=== PATIENT | female | born 1930 | race Caucasian/White ===

== ENCOUNTER 2016-11-16 13:02 | Outpatient (CLI) | payer MEDICARE, OTHER ==
[2015-04-14 19:39] VITALS: BP 121/50
== END 2016-11-16 13:03 ==
LOC: POD 13:02
PROVIDERS: ATTEND Podiatrist
DX: L84 Corns and callosities (principal); B35.1 Tinea unguium; M79.674 Pain in right toe(s); M79.675 Pain in left toe(s)
CPT/HCPCS: G0463

== ENCOUNTER 2017-01-02 13:33 | Outpatient (CLI) | payer MEDICARE ==
[2015-04-14 19:39] VITALS: BP 121/50
== END 2017-01-02 13:34 ==
LOC: LABRHC 13:33
PROVIDERS: ATTEND Family Medicine
DX: R30.0 Dysuria (principal)
CPT/HCPCS: 87086; 87186

== ENCOUNTER 2017-01-11 18:07 | Emergency (ER) | payer MEDICARE, OTHER ==
[2017-01-11 18:27] LABS: BASOPHILS % 0.3 (0.0-1.5); EOSINOPHILS % 1.3 % (0.0-6.8); MEAN CORPUSCULAR HEMOGLOBIN 30.2 pg (28.0-34.0); MEAN CORPUSCULAR VOLUME 87.5 fl (80.0-100.0); NEUTROPHILS # 8.8 # k/uL (1.4-7.7)
[2017-01-11 18:44] LABS: eGFR (African) > 60; eGFR (Non-African) > 60
[2017-01-11] MEDS: 0.9 % SODIUM CHLORIDE 1,000 ML IV ONE ×2 (19:07→21:11)
[2017-01-11] MEDS ORDERED: ONDANSETRON HCL/PF 4 MG/ 2ML VIAL ONE (20:20)
[2017-01-11] MEDS: ONDANSETRON HCL/PF 4 MG/ 2ML VIAL IVP ONE (20:27)
[2017-01-11] MEDS ORDERED: 0.9 % SODIUM CHLORIDE 500 ML IV ONE (21:06)
[2017-01-11] MEDS ORDERED: LEVOFLOXACIN 500MG/D5W 100ML 100 ML IV ONE (21:26)
[2017-01-11] MEDS: LEVOFLOXACIN 500MG/D5W 100ML 500 MG in PREMIX BAG 1 BAG IV SCH (21:33)
[2017-01-11 22:10] VITALS: BP 111/61
--- NOTE | 2017-01-12 00:21 | ED Physician Documentation ---
General Adult - HISTORIAN Historian: patient, child - HPI Stated Complaint: Weakness Chief Complaint: General Adult Additional Information: recent uti tx w/ bactrim has sig weakness lethargy c/o abd shoulder leg pain. karen says privately she has dementia but lives alone still does some out door lawn garden work. also some int chest pain and sob Onset: days ago (prog past 3-4 days) Timing: persistent since Severity: moderate Further Comments: yes (takes boost drinks little else. karen took her supper last noct ate well but karen thionks probably sig less unless fokod taken to her) - ROS CONST: weakness EYES/ENT: problems with vision (macular degeneration) CVS/RESP: chest pain, shortness of breath GI/: abdominal pain MS/SKIN/LYMPH: none. denies: ankle swelling - PAST HX Past History: other (dementia-pt says just not good memory due to age) - SOCIAL HX Smoking History: non-smoker Alcohol Use: none Drug Use: none - FAMILY HX Family History: No - VITAL SIGNS Vital Signs: Vital Signs Temp Pulse Resp BP Pulse Ox 97.1 F L 102 H 20 114/61 97 01/11/17 18:10 01/11/17 18:18 01/11/17 18:10 01/11/17 18:10 01/11/17 18:18 - REVIEWED ASSESSMENTS Nursing Assessment Reviewed: Yes Vitals Reviewed: Yes <Donn Manzo - Last Filed: 01/11/17 18:55> - VITAL SIGNS Vital Signs: Vital Signs Temp Pulse Resp BP Pulse Ox 97.1 F L 97 H 20 114/61 95 01/11/17 18:10 01/11/17 21:30 01/11/17 18:10 01/11/17 18:10 01/11/17 21:30 <Leighton Hobbs - Last Filed: 01/11/17 21:56> - PAST HX Allergies/Adverse Reactions: Allergies Allergy/AdvReac Type Severity Reaction Status Date / Time No Known Allergies Allergy Verified 04/14/15 16:42 Home Medications: Ambulatory Orders Medication Instructions Recorded Levofloxacin [Levaquin] 250 mg PO DAILY #10 tablet 01/11/17 Progress - Progress Progress: Pt with generalized malaise and achiness, complaining of abd pain. Pt has some dementia per daughter. Pt was dx'd with UTI 5/31/17 and has been on Bactrim. Culture showed organism Proteus Mirabilus sensitive to bactrim, but pt still has 1+ leukoesterase on urine dipstick with L shift on cbc differential. Pt appears more confused than usual per daughter. No focal deficits. Pt was very dehydrated with BUN/cre ratio > 32. Pt given 1.5 L NS in ER and zofran 4 mg. Pt given Levaquin 500 mg IV in ER and rx levaquin 250 po qd x 10 days. F/u pcp for possible repeat u/a. <Leighton Hobbs - Last Filed: 01/11/17 21:56> ED Results Lab/Radiology - Lab Results Lab Results: Lab Results 01/11/17 01/11/17 01/11/17 18:21 18:21 18:18 WBC 9.70 K/ul K/ul (4.00-12.00) RBC 4.32 M/ul M/ul (3.90-5.20) Hgb 13.1 g/dL g/dL (12.0-16.0) Hct 37.8 % % (34.5-46.5) MCV 87.5 fl fl (80.0-100.0) MCH 30.2 pg pg (28.0-34.0) MCHC 34.5 g/dL g/dL (30.0-36.0) RDW 13.9 % % (11.3-14.3) Plt Count 247 K/mm3 K/mm3 (130-400) Neut % (Auto) 90.7 % H % (39.0-79.0) Lymph % (Auto) 5.1 % L % (16.0-50.0) Whiteside % (Auto) 2.0 % % (0.0-11.0) Eos % (Auto) 1.3 % % (0.0-6.8) Baso % (Auto) 0.3 (0.0-1.5) Neut # 8.8 # k/uL H # k/uL (1.4-7.7) Lymph # 0.5 # k/uL L # k/uL (0.6-4.0) Whiteside # 0.2 # k/uL # k/uL (0.0-0.9) Eos # 0.1 # k/uL # k/uL (0.0-0.6) Baso # 0.0 # k/uL # k/uL (0.0-0.5) Reactive Lymphs % 0.6 % % (0.0-5.0) Reactive Lymphs # 0.1 # k/uL # k/uL (0.0-0.8) Sodium 134 mmol/L L mmol/L (136-145) Potassium 4.4 mmol/L mmol/L (3.5-5.0) Chloride 104 mmol/L mmol/L (98-110) Carbon Dioxide 26 mmol/L mmol/L (20-32) BUN 26 mg/dL mg/dL (10-26) Creatinine 0.8 mg/dL mg/dL (0.4-1.5) Estimated Creat Clear 49 Est GFR ( Amer) > 60 (60 - ) Est GFR (Non-Af Amer) > 60 (60 - ) Glucose 150 mg/dL H mg/dL (70-99) Calcium 9.5 mg/dL mg/dL (8.5-10.5) Total Bilirubin 0.4 mg/dL mg/dL (0.2-1.2) AST 26 U/L U/L (0-41) ALT 21 U/L U/L (0-45) Alkaline Phosphatase 143 U/L H U/L (46-116) Creatine Kinase 80 U/L U/L (0-225) Troponin I 0.03 ng/mL ng/mL (0.03-0.06) Total Protein 7.0 g/dL g/dL (6.0-8.5) Albumin 4.4 g/dL g/dL (3.0-5.5) - Orders Orders: ED Orders Category Date Time Status Continuous EKG monitoring Q30M Care 01/11/17 18:18 Active Continuous Pulse Oximetry Q30M Care 01/11/17 18:[address] IV Lock 1T Care 01/11/17 18:18 Active CBC/PLATELET/DIFF Routine Lab 01/11/17 18:18 Completed CMP Routine Lab 01/11/17 18:21 Completed CREATINE KINASE Routine Lab 01/11/17 18:21 Completed TROPONIN I (cTnI) Stat Lab 01/11/17 18:21 Completed UA [URINALYSIS] Routine Lab 01/11/17 Ordered NORMAL SALINE @ 500 MLS/HR ( 1000ml BOLUS) Med 01/11/17 18:54 Ordered 0.9 % Sodium Chloride [Normal Saline] 1,000 ml IV Q2H EKG WITH COMPARISON Stat Ther 01/11/17 18:18 Ordered <Donn Manzo - Last Filed: 01/11/17 18:55> - Lab Results Lab Results: Lab Results 01/11/17 01/11/17 01/11/17 18:21 18:21 18:18 WBC 9.70 K/ul K/ul (4.00-12.00) RBC 4.32 M/ul M/ul (3.90-5.20) Hgb 13.1 g/dL g/dL (12.0-16.0) Hct 37.8 % % (34.5-46.5) MCV 87.5 fl fl (80.0-100.0) MCH 30.2 pg pg (28.0-34.0) MCHC 34.5 g/dL g/dL (30.0-36.0) RDW 13.9 % % (11.3-14.3) Plt Count 247 K/mm3 K/mm3 (130-400) Neut % (Auto) 90.7 % H % (39.0-79.0) Lymph % (Auto) 5.1 % L % (16.0-50.0) Whiteside % (Auto) 2.0 % % (0.0-11.0) Eos % (Auto) 1.3 % % (0.0-6.8) Baso % (Auto) 0.3 (0.0-1.5) Neut # 8.8 # k/uL H # k/uL (1.4-7.7) Lymph # 0.5 # k/uL L # k/uL (0.6-4.0) Whiteside # 0.2 # k/uL # k/uL (0.0-0.9) Eos # 0.1 # k/uL # k/uL (0.0-0.6) Baso # 0.0 # k/uL # k/uL (0.0-0.5) Reactive Lymphs % 0.6 % % (0.0-5.0) Reactive Lymphs # 0.1 # k/uL # k/uL (0.0-0.8) Sodium 134 mmol/L L mmol/L (136-145) Potassium 4.4 mmol/L mmol/L (3.5-5.0) Chloride 104 mmol/L mmol/L (98-110) Carbon Dioxide 26 mmol/L mmol/L (20-32) BUN 26 mg/dL mg/dL (10-26) Creatinine 0.8 mg/dL mg/dL (0.4-1.5) Estimated Creat Clear 49 Est GFR ( Amer) > 60 (60 - ) Est GFR (Non-Af Amer) > 60 (60 - ) Glucose 150 mg/dL H mg/dL (70-99) Calcium 9.5 mg/dL mg/dL (8.5-10.5) Total Bilirubin 0.4 mg/dL mg/dL (0.2-1.2) AST 26 U/L U/L (0-41) ALT 21 U/L U/L (0-45) Alkaline Phosphatase 143 U/L H U/L (46-116) Creatine Kinase 80 U/L U/L (0-225) Troponin I 0.03 ng/mL ng/mL (0.03-0.06) Total Protein 7.0 g/dL g/dL (6.0-8.5) Albumin 4.4 g/dL g/dL (3.0-5.5) - Orders Orders: ED Orders Category Date Time Status Continuous EKG monitoring Q30M Care 01/11/17 18:18 Active Continuous Pulse Oximetry Q30M Care 01/11/17 18:[address] IV Lock 1T Care 01/11/17 18:18 Active CHEST 1 VIEW [RAD] Stat Exams 01/11/17 Taken KUB [ABDOMEN 1 VIEW] [RAD] Stat Exams 01/11/17 Taken CBC/PLATELET/DIFF Routine Lab 01/11/17 18:18 Completed CMP Routine Lab 01/11/17 18:21 Completed CREATINE KINASE Routine Lab 01/11/17 18:21 Completed TROPONIN I (cTnI) Stat Lab 01/11/17 18:21 Completed UA [URINALYSIS] Routine Lab 01/11/17 Ordered 0.9 % Sodium Chloride [Normal Saline] 1,000 ml Med 01/11/17 18:54 Discontinued IV Q2H 0.9 % Sodium Chloride [Normal Saline] 1,000 ml Med 01/11/17 21:05 Active IV Q2H 0.9 % Sodium Chloride [Normal Saline] 500 ml Med 01/11/17 21:06 Discontinued IV .STK-MED Levofloxacin 500Mg/D5w 100Ml [Levaquin] 100 ml Med 01/11/17 21:26 Discontinued IV .STK-MED Levofloxacin 500Mg/D5w 100Ml [Levaquin] 500 mg Med 01/12/17 09:00 Ordered Premix Bag [Premix Fluid] 1 bag IV DAILY Ondansetron HCl/Pf [Zofran 4 mg/2 ml] Med 01/11/17 20:20 Discontinued 4 mg .ROUTE .STK-MED ONE Ondansetron HCl/Pf [Zofran 4 mg/2 ml] Med 01/11/17 20:20 Discontinued 4 mg IVP NOW ONE EKG WITH COMPARISON Stat Ther 01/11/17 18:18 Ordered <Leighton Hobbs - Last Filed: 01/11/17 21:56> General Adult Physical Exam - PHYSICAL EXAM GENERAL APPEARANCE: moderate distress EENT: eye inspection normal NECK: normal inspection RESPIRATORY: no resp distress, chest non-tender, breath sounds normal. No: wheezes, rales, rhonchi CVS: reg rate & rhythm, heart sounds normal (ecg shows sl tachy) ABDOMEN: soft, tenderness (slight generalized) SKIN: warm/dry. No: normal color (slight pallor) EXTREMITIES: non-tender NEURO: oriented X3, motor nml, sensation nml, depressed mood/affect <Donn Manzo - Last Filed: 01/11/17 18:55> Discharge <Donn Manzo - Last Filed: 01/11/17 18:55> Decision to Admit: NO Decision Time: 21:55 <Leighton Hobbs - Last Filed: 01/11/17 21:56> Clincal Impression: Dehydration, UTI (urinary tract infection) Prescriptions: Levofloxacin [Levaquin] 250 mg PO DAILY #10 tablet Referrals: Jennifer Dumas MD [Primary Care Provider] - 2 Days Home Medications: Ambulatory Orders Levofloxacin [Levaquin] 250 mg PO DAILY #10 tablet 01/11/17 Condition: Stable Disposition: 01 HOME, SELF-CARE
[2017-01-12 05:29] LABS: APPEARANCE,URINE CLEAR (CLEAR); COLOR,URINE YELLOW (YELLOW); OCCULT BLOOD,URINE NEGATIVE (NEGATIVE); PH URINE 5.5 (5.0 - 8.0)
--- NOTE | 2017-01-12 07:10 | Diagnostic Imaging Report ---
KENNETH KIRKLAND [facility] [address] [facility] [address] [address] Report Submission Date: Jan 11, 2017 9:12:51 PM CDT Patient Study Name: CHRISTOPHER NDIAYE Date: Jan 11, 2017 8:48:10 PM CDT MRN: [id number] Modality Type: CR Gender: F Description: ABDOMEN : [birth year] Institution: [facility] Physician: KENNETH KIRKLAND Clinical history: Abdominal pain Technique ap supine radiograph of the abdomen Findings: The bowel gas pattern is nonspecific. No renal calcifications are seen. Cholecystectomy clips are present. There is levoscoliosis and lumbar spondylosis. No mass is seen. Retained fecal material is present in the colon. The lung bases are clear. The thumb Impression: Retained fecal material in the colon Cholecystectomy Levoscoliosis and lumbar spondylosis. No evidence of bowel obstruction Electronically signed on Jan 11, 2017 9:12:51 PM CDT by: Loc CALIX
--- NOTE | 2017-01-12 07:11 | Diagnostic Imaging Report ---
KENNETH KIRKLAND [facility] [address] [facility] [address] [address] Report Submission Date: Jan 11, 2017 9:14:22 PM CDT Patient Study Name: CHRISTOPHER NDIAYE Date: Jan 11, 2017 8:55:00 PM CDT MRN: [id number] Modality Type: CR Gender: F Description: CHEST : [birth year] Institution: [facility] Physician: KENNETH KIRKLAND Ap portable upright radiographs of the chest Clinical history: Abdominal pain Technique: anterior /posterior portable upright Findings: The lung biggs are hyperinflated. The aorta is tortuous and calcified.. Thoracic spondylosis and dextroscoliosis are present.. No pneumothorax or pleural effusion is seen. Impression: Hyperinflation No acute pulmonary disease Aortic atherosclerosis Electronically signed on Jan 11, 2017 9:14:22 PM CDT by: Loc CALIX
== END 2017-01-11 22:00 | disposition home or self-care (01) ==
LOC: ED 18:07
DX: E86.0 Dehydration (principal); N39.0 Urinary tract infection, site not specified
CPT/HCPCS: 71010; 74000; 80053; 81002; 82550; 84484; 85025; J1956; J2405; J7030; J7060; 96361; 96365; 96375; 99284; S1016

== ENCOUNTER 2017-01-25 13:32 | Outpatient (CLI) | payer MEDICARE, OTHER | END 2017-01-25 13:40 | LOC: POD 13:32 | PROVIDERS: ATTEND Podiatrist | DX: B35.1 Tinea unguium (principal); M79.674 Pain in right toe(s); M79.675 Pain in left toe(s) | CPT/HCPCS: 11721; G0463 ==

== ENCOUNTER 2017-04-26 13:06 | Outpatient (CLI) | payer MEDICARE, OTHER | END 2017-04-26 13:07 | LOC: POD 13:06 | PROVIDERS: ATTEND Podiatrist | DX: B35.1 Tinea unguium (principal); M79.674 Pain in right toe(s); M79.675 Pain in left toe(s) | CPT/HCPCS: 11721; G0463 ==

== ENCOUNTER 2017-07-23 14:40 | Outpatient (CLI) | payer MEDICARE, OTHER | END 2017-07-23 14:42 | LOC: POD 14:40 | PROVIDERS: ATTEND Podiatrist | DX: B35.1 Tinea unguium (principal); M79.674 Pain in right toe(s); M79.675 Pain in left toe(s) | CPT/HCPCS: 11721; G0463 ==

== ENCOUNTER 2017-10-22 14:31 | Outpatient (CLI) | payer MEDICARE, OTHER | END 2017-10-22 14:33 | LOC: POD 14:31 | PROVIDERS: ATTEND Podiatrist | DX: B35.1 Tinea unguium (principal); M79.674 Pain in right toe(s); M79.675 Pain in left toe(s); L84 Corns and callosities | CPT/HCPCS: 11721; G0463 ==

== ENCOUNTER 2017-12-17 14:58 | Outpatient (CLI) | payer MEDICARE, OTHER ==
--- NOTE | 2017-12-17 16:29 | Diagnostic Imaging Report ---
CHENCHO GALLARDO [facility] [address] [facility] [address] [address] Report Submission Date: December 17, 2017 3:36:21 PM CDT Patient Study Name: CHRISTOPHER NDIAYE Date: December 17, 2017 3:09:47 PM CDT Modality Type: DX Gender: F Description: SPINE : [birth year] Institution: [facility] Physician: CHENCHO GALLARDO Examination: Plain film lumbar spine History: PAIN AFTER FALL X 1 WEEK (Hx) Findings: 3 views of the lumbar spine demonstrates osteopenia. Curvature to left. Extensive osteophyte formation and disc space narrowing. Atherosclerotic disease involving the abdominal aorta. Impression: Curvature and multilevel degenerative changes. No compression deformity. Electronically signed on December 17, 2017 3:36:21 PM CDT by: Butch CALIX
--- NOTE | 2017-12-17 16:30 | Diagnostic Imaging Report ---
CHENCHO GALLARDO [facility] [address] [facility] [address] [address] Report Submission Date: December 17, 2017 3:35:01 PM CDT Patient Study Name: CHRISTOPHER NDIAYE Date: December 17, 2017 3:05:26 PM CDT Modality Type: DX Gender: F Description: PELVIS : [birth year] Institution: [facility] Physician: CHENCHO GALLARDO Examination: Plain film pelvis History: PAIN AFTER FALL X 1 WEEK (Hx) Comparison exams: None provided Findings: 2 views of the left hip demonstrates mild osteopenia. Mild articular degenerative changes. No fracture. No dislocation. mild vascular calcifications. Impression: Mild degenerative changes. No acute osseous process. Electronically signed on December 17, 2017 3:35:01 PM CDT by: Butch CALIX
== END 2017-12-17 15:00 ==
LOC: RAD 14:58
PROVIDERS: ATTEND Physician Assistant
DX: M54.5 Low back pain (principal)
CPT/HCPCS: 72100; 87086

== ENCOUNTER 2017-12-17 16:28 | Outpatient (CLI) | payer MEDICARE, OTHER | END 2017-12-17 16:30 | LOC: LABRHC 16:28 | PROVIDERS: ATTEND Physician Assistant | DX: Z53.9 Procedure and treatment not carried out, unspecified reason (principal) | CPT/HCPCS: 87086 ==

== ENCOUNTER 2018-01-07 13:21 | Outpatient (CLI) | payer MEDICARE, OTHER | END 2018-01-07 13:22 | LOC: POD 13:21 | PROVIDERS: ATTEND Podiatrist | DX: B35.1 Tinea unguium (principal); M79.674 Pain in right toe(s); M79.675 Pain in left toe(s); L84 Corns and callosities | CPT/HCPCS: 11721; G0463 ==

== ENCOUNTER 2018-05-20 17:18 | Emergency (ER) | payer MEDICARE, OTHER ==
[2018-05-20 17:43] LABS: MEAN CORPUSCULAR HEMOGLOBIN 29.7 pg (28.0-34.0)
[2018-05-20 17:44] LABS: BASOPHILS % 0.3 (0.0-1.5); EOSINOPHILS % 0.7 % (0.0-6.8); MONOCYTES % 5.9 % (0.0-11.0); NEUTROPHILS # 5.1 # k/uL (1.4-7.7)
[2018-05-20] MEDS: ONDANSETRON HCL/PF 4 MG/ 2ML VIAL IVP ONE (17:55)
[2018-05-20 17:58] LABS: eGFR (Non-African) > 60
--- NOTE | 2018-05-20 18:13 | ED Physician Documentation ---
General Adult - HISTORIAN Historian: patient, child (daughter) - HPI Stated Complaint: n/v Chief Complaint: General Adult Additional Information: Complained of feeling tired last evening. When daughter delivered supper to patient, she could barely get off the couch. On the car ride to the ER, she began to vomit. Denies pain. Temp 99.1 in ER. HX dementia. Cannot reliably contribute to CC, HPI, ROS. Says she had normal stool many times yesterday. Daughter says this didn't happen as pt was on a road trip with a friend. Denies dysuria. No other modifying factors or associated signs. - ROS CONST: no problems - PAST HX Past History: other (dementia) Allergies/Adverse Reactions: Allergies Allergy/AdvReac Type Severity Reaction Status Date / Time No Known Allergies Allergy Verified 05/20/18 17:40 - SOCIAL HX Smoking History: non-smoker - FAMILY HX Family History: No (no signif) - VITAL SIGNS Vital Signs: Vital Signs Temp Pulse Resp BP Pulse Ox 99.1 F 91 H 22 156/71 93 05/20/18 17:25 05/20/18 17:31 05/20/18 17:25 05/20/18 17:25 05/20/18 17:25 - REVIEWED ASSESSMENTS Nursing Assessment Reviewed: Yes Vitals Reviewed: Yes Progress - Progress Progress: Report Submission Date: May 20, 2018 8:08:51 PM CDT Patient Study Name: CHRISTOPHER NDIAYE Date: May 20, 2018 7:28:23 PM CDT Modality Type: CT\SR Gender: F Description: CT ABD PELVIS W/ CON : [birth year] Institution: [facility] Physician: MICHELLE PEARL - ER CT abdomen and pelvis with contrast Date of study: CLINICAL HISTORY: 60mL's Omni injected due to stability of pts IV, lipase 3520, vomiting (Hx) / ITS.REASON lipase 3520 TECHNIQUE: 5 mm contiguous axial images of the abdomen and pelvis with IV contrast. With; 60 CC OMNIPAQUE FINDINGS: No comparison studies are provided. Bibasilar dependent lung densities are noted. There is a small hiatal hernia. Abdomen: Surgical clips are present consistent with prior cholecystectomy. There is slight prominence of the intrahepatic bile ducts that is most likely a post cholecystectomy effect. The common bile duct is not dilated. There is enlargement of the pancreatic body and tail that may represent mild acute pancreatitis. There is slight inflammatory stranding between the tail of the pancreas and the left kidney. The liver and spleen are normal in appearance. The kidneys enhance appropriately and symmetrically. A dilated left renal pelvis is present without evidence of hydronephrosis. The aorta is normal in caliber. The small bowel is nondistended. There is no evidence of free air or free fluid. Pelvis: The colon is normal in appearance. The distal ureters and bladder are normal. There is no evidence of free air or free fluid. There is diverticulosis of the sigmoid colon. And implant is present within the uterus. The remaining pelvic structures are within normal limits and the bones of the pelvis are intact. There is left lumbar scoliosis and multilevel degenerative lumbar spondylosis. IMPRESSION: Enlargement of the pancreatic body and tail that may represent mild acute pancreatitis. Dilated left renal pelvis without evidence of hydronephrosis. Small hiatal hernia. Sigmoid colon diverticulosis. Electronically signed on May 20, 2018 8:08:51 PM CDT by: Report Submission Date: May 20, 2018 6:28:34 PM CDT Patient Study Name: CHRISTOPHER NDIAYE Date: May 20, 2018 5:36:01 PM CDT Modality Type: DX Gender: F Description: CHEST : [birth year] Institution: [facility] Physician: MICHELLE PEARL HISTORY: 87-year-old female with weakness, vomiting, swelling and ankles. COMPARISON: Chest x-ray dated 01/11/2017 is not available for viewing. TECHNIQUE: Single portable AP view of the chest was performed. FINDINGS: No pneumothorax, consolidative infiltrates, or pulmonary edema. The heart is borderline enlarged. The aortic arch is calcific. No fractures are identified about the bony thorax. There is thoracolumbar dextroscoliosis. IMPRESSION: 1. No acute cardiopulmonary process. 2. Atherosclerotic vascular disease. Electronically signed on May 20, 2018 6:28:34 PM CDT by: Ricardo Christopher unable to accept pt as they have no ICU or step down beds. 2047, accepted for admit to [facility] per Dr Monaco, internal medicine. ED Results Lab/Radiology - Lab Results Lab Results: Lab Results 05/20/18 05/20/18 17:30 17:30 WBC 6.70 K/ul K/ul (4.00-12.00) RBC 4.71 M/ul M/ul (3.90-5.20) Hgb 14.0 g/dL g/dL (12.0-16.0) Hct 41.8 % % (34.5-46.5) MCV 89.0 fl fl (80.0-100.0) MCH 29.7 pg pg (28.0-34.0) MCHC 33.4 g/dL g/dL (30.0-36.0) RDW 12.4 % % (11.3-14.3) Plt Count 208 K/mm3 K/mm3 (130-400) Neut % (Auto) 75.7 % % (39.0-79.0) Lymph % (Auto) 17.4 % % (16.0-50.0) Banner % (Auto) 5.9 % % (0.0-11.0) Eos % (Auto) 0.7 % % (0.0-6.8) Baso % (Auto) 0.3 (0.0-1.5) Neut # (Auto) 5.1 # k/uL # k/uL (1.4-7.7) Lymph # (Auto) 1.2 # k/uL # k/uL (0.6-4.0) Banner # (Auto) 0.4 # k/uL # k/uL (0.0-0.9) Eos # (Auto) 0.1 # k/uL # k/uL (0.0-0.6) Baso # (Auto) 0.0 # k/uL # k/uL (0.0-0.5) Sodium 138 mmol/L mmol/L (136-145) Potassium 3.6 mmol/L mmol/L (3.5-5.1) Chloride 99 mmol/L mmol/L (98-107) Carbon Dioxide 25 mmol/L mmol/L (22-30) BUN 19 mg/dL H mg/dL (7-17) Creatinine 0.80 mg/dL mg/dL (0.52-1.04) Estimated Creat Clear 56 Est GFR ( Amer) > 60 (60 - ) Est GFR (Non-Af Amer) > 60 (60 - ) Glucose 135 mg/dL H mg/dL (74-106) Calcium 8.6 mg/dL mg/dL (8.4-10.2) Total Bilirubin 0.7 mg/dL mg/dL (0.2-1.3) AST 33 U/L U/L (15-46) ALT 33 U/L U/L (13-69) Alkaline Phosphatase 104 U/L U/L (38-126) Total Protein 7.5 g/dL g/dL (6.3-8.2) Albumin 4.0 g/dL g/dL (3.5-5.0) - Orders Orders: ED Orders Category Date Time Status Continuous EKG monitoring Q1H Care 05/20/18 17:[address] IV Lock 1T Care 05/20/18 17:31 Active CHEST 1VIEW [RAD] Stat Exams 05/20/18 Ordered CBC/PLATELET/DIFF Routine Lab 05/20/18 17:30 Completed CMP [CMP] Routine Lab 05/20/18 17:30 Completed LIPASE Stat Lab 05/20/18 17:30 Received TROPONIN T (Sulaiman) Stat Lab 05/20/18 17:30 Received URINALYSIS Routine Lab 05/20/18 Ordered Ondansetron HCl/Pf [Zofran 4 mg/2 ml] Med 05/20/18 17:33 Discontinued 4 mg IVP NOW ONE EKG WITH COMPARISON Stat Ther 05/20/18 Completed General Adult Physical Exam - PHYSICAL EXAM GENERAL APPEARANCE: mild distress EENT: eye inspection normal, ENT inspection normal (dentures), pharynx normal NECK: normal inspection, supple (non tender) RESPIRATORY: chest non-tender, breath sounds normal CVS: reg rate & rhythm, heart sounds normal BACK: normal inspection, other (no vertebral tenderness) SKIN: warm/dry, normal color NEURO: motor nml, sensation nml Discharge Clincal Impression: Pancreatitis Qualifiers: Chronicity: acute Pancreatitis type: unspecified pancreatitis type Acute pancreatitis complication: unspecified Qualified Code(s): K85.90 - Acute pancreatitis without necrosis or infection, unspecified Referrals: Jennifer Dumas MD [Primary Care Provider] - 2 Days Condition: Fair Disposition: 01 HOME, SELF-CARE Decision to Admit: NO Decision Time: 20:48
[2018-05-20 20:51] LABS: TROPONIN T <0.010 ng/mL (<0.010)
[2018-05-20 21:59] VITALS: BP 134/63
--- NOTE | 2018-05-21 06:56 | Diagnostic Imaging Report ---
MICHELLE PEARL [facility] [address] [facility] [address] [place], [place]. [address] Report Submission Date: May 20, 2018 8:08:51 PM CDT Patient Study Name: CHRISTOPHER NDIAYE Date: May 20, 2018 7:28:23 PM CDT Modality Type: CT\SR Gender: F Description: CT ABD PELVIS W/ CON : [birth year] Institution: [facility] Physician: MICHELLE PEARL CT abdomen and pelvis with contrast Date of study: CLINICAL HISTORY: 60mL's Omni injected due to stability of pts IV, lipase 3520, vomiting (Hx) / ITS.REASON lipase 3520 TECHNIQUE: 5 mm contiguous axial images of the abdomen and pelvis with IV contrast. With; 60 CC OMNIPAQUE FINDINGS: No comparison studies are provided. Bibasilar dependent lung densities are noted. There is a small hiatal hernia. Abdomen: Surgical clips are present consistent with prior cholecystectomy. There is slight prominence of the intrahepatic bile ducts that is most likely a post cholecystectomy effect. The common bile duct is not dilated. There is enlargement of the pancreatic body and tail that may represent mild acute pancreatitis. There is slight inflammatory stranding between the tail of the pancreas and the left kidney. The liver and spleen are normal in appearance. The kidneys enhance appropriately and symmetrically. A dilated left renal pelvis is present without evidence of hydronephrosis. The aorta is normal in caliber. The small bowel is nondistended. There is no evidence of free air or free fluid. Pelvis: The colon is normal in appearance. The distal ureters and bladder are normal. There is no evidence of free air or free fluid. There is diverticulosis of the sigmoid colon. And implant is present within the uterus. The remaining pelvic structures are within normal limits and the bones of the pelvis are intact. There is left lumbar scoliosis and multilevel degenerative lumbar spondylosis. IMPRESSION: Enlargement of the pancreatic body and tail that may represent mild acute pancreatitis. Dilated left renal pelvis without evidence of hydronephrosis. Small hiatal hernia. Sigmoid colon diverticulosis. Electronically signed on May 20, 2018 8:08:51 PM CDT by: Saulo CALIX
--- NOTE | 2018-05-21 06:58 | Diagnostic Imaging Report ---
MICHELLE PEARL [facility] [place] [facility] [address] [facility] [address] [address] Report Submission Date: May 20, 2018 6:28:34 PM CDT Patient Study Name: CHRISTOPHER NDIAYE Date: May 20, 2018 5:36:01 PM CDT Modality Type: DX Gender: F Description: CHEST : [birth year] Institution: [facility] [place] [facility] Physician: MICHELLE PEARL HISTORY: 87-year-old female with weakness, vomiting, swelling and ankles. COMPARISON: Chest x-ray dated 01/11/2017 is not available for viewing. TECHNIQUE: Single portable AP view of the chest was performed. FINDINGS: No pneumothorax, consolidative infiltrates, or pulmonary edema. The heart is borderline enlarged. The aortic arch is calcific. No fractures are identified about the bony thorax. There is thoracolumbar dextroscoliosis. IMPRESSION: 1. No acute cardiopulmonary process. 2. Atherosclerotic vascular disease. Electronically signed on May 20, 2018 6:28:34 PM CDT by: Ricardo CALIX
== END 2018-05-20 21:35 | disposition home or self-care (01) ==
LOC: ED 17:18
DX: K85.90 Acute pancreatitis without necrosis or infection, unspecified (principal)
CPT/HCPCS: 71045; 74177; 80053; 83690; 84484; 85025; 93005; J2405; Q9966; 96374; 99284; S1016